=== PATIENT | male | born 1980 | race Caucasian/White ===

== ENCOUNTER 2021-10-09 06:00 | Day surgery (SDC) | payer OTHER, SELFPAY ==
[2021-10-07 14:03] VITALS: BMI 31.9
[2021-10-09 06:19] VITALS: BP 138/103; PULSE 76; RESP 16; TEMP 36.3; O2SAT 99
[2021-10-09] MEDS: sodium chloride 0.9% 1,000 ML 30 ML IV (06:24)
--- NOTE | 2021-10-09 06:34 | W.PM.OPSFHP ---
Same Day Surgery H&P Indication for Procedure/HPI DATE OF PROCEDURE: October 09, 2021 CHIEF COMPLAINT/INDICATIONFOR SURGICAL PROCEDURE: Surveillance colonoscopy PREOP DIAGNOSIS: Blood in stool PLANNED PROCEDURE: Operation Date: 10/09/21 07:30 Proposed Procedures p Colonoscopy 09820(Not Applicable) - Jamir Hernández MD 05/26/2021 This is a pleasant 40 years old gentleman with history of bloody diarrhea.? History of colon polyps.? Patient was previously diagnosed with Crohn's disease according to his description back in 2013 and then in 2017 in [place] that was ruled out.? And was treated with live bacteria according to his reporting.? Patient reports that he had multiple colonoscopies and currently he does have blood in stool but no diarrhea.? He is referred to my practice for surveillance colonoscopy. 10/09/2021 Patient comes today for colonoscopy with history of blood in stool. ROS All systems have been reviewed negative except as for the above or per problem list. Medications/Allergies* Home Medications Medication Instructions Recorded Confirmed Type divalproex 250 mg tablet,extended 250 mg PO DAILY 07/15/21 10/09/21 History release 24 hr (Depakote ER) Allergies/Adverse Reactions Allergy/AdvReac Type Severity Reaction Status Date / Time No Known Allergies Allergy Verified 10/09/21 06:35 Current Medications: Generic Name Dose Route Start Last Admin Trade Name Freq PRN Reason Stop Dose Admin Sodium Chloride 1,000 mls @ 30 mls/hr 10/09/21 06:15 10/09/21 06:24 Sodium Chloride 0.9% IV 10/10/21 06:14 30 mls/hr .Q24H OTILIA Administration Pertinent History/Comorbid Conditions* Family History (Updated 05/26/21 @ 10:15 by Minnie Danielle) CAD (coronary artery disease) Cancer Stroke Denies family history of Diabetes Dementia Chronic kidney disease (CKD) Social History Smoking and tobacco status: current every day smoker smokeless tobacco Alcohol intake: never Lives independently: Yes Household members: spouse and children Pertinent Exam Findings alert, oriented x 3, regular rate & rhythm and procedure specific exam findings (Abdominal examination nontender nondistended soft) Recommendations Surgery/Procedure today (Diagnostic colonoscopy) Coding Level of Care Code Acute System Technologist for Ania Flannery
--- NOTE | 2021-10-09 06:52 | ANES.PREANE2 ---
Pre-Anesthetic Assessment Height/Weight: Height 1.73 m Weight 95.254 kg Temp Pulse Resp BP Pulse Ox 97.3 F L 76 16 138/103 99 10/09/21 06:19 10/09/21 06:19 10/09/21 06:19 10/09/21 06:19 10/09/21 06:19 Preop Diagnosis: Blood in stool Operation Date: 10/09/21 07:30 Proposed Procedures p Colonoscopy 33018(Not Applicable) - Jamir Hernández MD Was Beta Rojas taken within 24 hours: Yes Was Clonidine taken within 24 hours: Yes Last intake: Intake Last Liquid Date 10/08/21 Last Liquid Time 21:00 Last Solid Date 10/07/21 Last Solid Time 19:00 Last Intake: 21:00 Social Tobacco chews Exam alert and oriented x 3 Airway Submandibular: within normal limits Cervical ROM: within normal limits Mallampati: Class II Dentition: full History/ROS No significant history except as noted Pulmonary Sleep Apnea (Cpap) CV/HEM None reported None reported Hepatic None reported GI None reported Metabolic None reported Musc/skel None reported Neuropsych None reported Anesthetic Plan ASA status: 2 Anesthesia: MAC Risk of > 500 ml blood loss (7ml/kg in children): No Medications/Allergies Home Medications Medication Instructions Recorded Confirmed Last Taken Type divalproex 250 mg tablet,extended 250 mg PO DAILY 07/15/21 10/09/21 10/08/21 History release 24 hr (Depakote ER) Allergies Allergy/AdvReac Type Severity Reaction Status Date / Time No Known Allergies Allergy Verified 10/09/21 06:35 Current Medications Generic Name Dose Route Start Last Admin Trade Name Juanjoq PRN Reason Stop Dose Admin Sodium Chloride 1,000 mls @ 30 mls/hr 10/09/21 06:15 10/09/21 06:24 Sodium Chloride 0.9% IV 10/10/21 06:14 30 mls/hr .Q24H OTILIA Administration PFSH Anesthesia Family History Other CAD (coronary artery disease) Cancer Stroke Denies family history of Diabetes Dementia Chronic kidney disease (CKD) Social History Smoking and tobacco status: current every day smoker smokeless tobacco Alcohol intake: never Lives independently: Yes Household members: spouse and children Data Anesthesia Cardiac Studies: No Data to Display
[2021-10-09 07:52] VITALS: BP 98/63; PULSE 80; RESP 18; TEMP 36.2; O2SAT 95
[2021-10-09 08:03] VITALS: BP 120/60; PULSE 69; RESP 18; O2SAT 95
[2021-10-09 08:15] VITALS: BP 104/75
--- NOTE | 2021-10-09 16:29 | ANE.PACU2 ---
Inpatient post-anesthesia follow up: Airway intact: Yes Vital signs: Temperature 97.2 F Pulse Rate 69 Respiratory Rate 18 Blood Pressure 104/75 Pulse Oximetry 95 Oxygen Delivery Me thod Room Air Oxygen Flow Rate Fraction of Inspir ed Oxygen Hydration adequate: Yes Nausea and vomiting: No Pain level: 1 Mental status: Baseline
== END 2021-10-09 08:35 | disposition home or self-care (01) ==
PROVIDERS: PCP Family Medicine; Visit Provider Surgery
PROC: 0DJD8ZZ Inspection of Lower Intestinal Tract, Via Natural or Artificial Opening Endoscopic (ICD-10-PCS; CPT 45378; principal; 2021-10-09 07:30)
DX: K92.1 Melena (principal); Z86.010 Personal history of colon polyps; Z82.49 Family history of ischemic heart disease and other diseases of the circulatory system; F17.220 Nicotine dependence, chewing tobacco, uncomplicated; G47.30 Sleep apnea, unspecified
CPT/HCPCS: 45378; J2704; J7030

== ENCOUNTER → 2021-12-08 11:45 | Outpatient (BNVA) | payer OTHER, SELFPAY | PROVIDERS: PCP Family Medicine; Visit Provider Specialist | DX: G43.019 Migraine without aura, intractable, without status migrainosus (principal); S06.9X0S Unspecified intracranial injury without loss of consciousness, sequela | CPT/HCPCS: 99204 ==

== ENCOUNTER 2022-02-03 08:59 | Outpatient (CLI) | payer OTHER, SELFPAY ==
--- NOTE | 2022-02-03 09:23 | MR_ITS ---
WS: [id number] MRI CERVICAL SPINE NONCONTRAST TECHNIQUE: Sagittal T1, T2 and STIR imaging. Axial T2, gradient, and fiesta imaging. CLINICAL INFORMATION: CEREVICAL RADICULOPATHY LEFT SIDE COMPARISON: None. FINDINGS: Straightening of the normal cervical lordosis. Cord signal is normal. No high-grade central canal gay rowing. C2-C3: Normal. C3-C4: Mild disc osteophytic ridging. Mild LEFT and no significant RIGHT foraminal narrowing. Mild fa cet arthropathy. Spinal canal is patent. C4-C5: Mild disc osteophytic ridging. Mild LEFT and no significant RIGHT foraminal narrowing. Mild fa cet arthropathy. Spinal canal is patent. C5-C6: Minimal disc bulging. Slight osteophytic ridging. Mild LEFT and no significant RIGHT foraminal narrowing. Mild facet arthropathy. Spinal canal is patent. C6-C7: Normal. C7-T1: Normal. Visualized brain stem structures: Normal. Prevertebral soft tissues: Normal. MR/MR cervical spin wo con* [id number] IMPRESSION: 1. Straightening of the normal cervical lordosis. Cord signal is normal. 2. Mild LEFT C3-C4, LEFT C4-C5, and LEFT C5-C6 bony foraminal narrowing. 3. Mild facet arthropathy C3-C4, C4-C5 and C5-C6.
== END 2022-02-03 09:00 | disposition home or self-care (01) ==
PROVIDERS: PCP Family Medicine; Visit Provider Family Medicine
DX: Z01.89 Encounter for other specified special examinations (principal); M54.12 Radiculopathy, cervical region; M47.812 Spondylosis without myelopathy or radiculopathy, cervical region
CPT/HCPCS: 72141

== ENCOUNTER 2022-03-02 14:06 | Outpatient (CLI) | payer OTHER, SELFPAY ==
--- NOTE | 2022-03-02 14:30 | MR_ITS ---
WS: [id number] MRI HEAD WITHOUT CONTRAST TECHNIQUE: Sagittal T1, T2 axial, T2 axial FLAIR, axial and coronal T1 images, axial susceptibility w eighted imaging, axial diffusion weighted images, and coronal T2 images were obtained. CLINICAL INFORMATION: R51.9 - Headache, unspecified COMPARISON: None. FINDINGS: No evidence of restricted diffusion to suggest acute ischemia. Ventricular system and basal cisterns are patent. A few tiny foci of T2 hyperintensity in the subcortical white matter of doubtful clinical significance but can be seen with migraine headaches. No suspicious intracranial signal abnormalitie s. Normal posterior fossa. Normal vascular flow voids at the skull base. Normal posterior nasopharynx . Normal parapharyngeal fat. No extra-axial fluid collections. No evidence of mass or mass effect. Paranasal sinuses and mastoid a ir cells are well aerated. Normal posterior nasopharynx. Normal optic chiasm and pituitary infundibulum. Temporal lobes and hippocampal formations are normal in appearance. No hemosiderin on susceptibly weighted images. No other suspicious findings. MR/MR head wo con* [id number] IMPRESSION: 1. No evidence of restricted diffusion to suggest acute ischemia. 2. A few tiny foci of T2 hyperintensity in the subcortical white matter of lelia btful clinical significance but can be seen with migraine headaches. 3. No other suspicious intracranial signal abnormalities. 4. Temporal lobes and hippocampal formations are normal in appearance. 5. Normal optic chiasm and pituitary infundibulum. 6. No hemosiderin on the susceptibly weighted images.
== END 2022-03-02 14:07 | disposition home or self-care (01) ==
PROVIDERS: PCP Family Medicine; Visit Provider Specialist
DX: R51.9 Headache, unspecified (principal); R29.90 Unspecified symptoms and signs involving the nervous system
CPT/HCPCS: 70551

== ENCOUNTER → 2022-05-06 08:06 | Outpatient (BNVA) | payer OTHER, SELFPAY | PROVIDERS: PCP Family Medicine; Referring Provider Specialist; Visit Provider Specialist | DX: G43.711 Chronic migraine without aura, intractable, with status migrainosus (principal); M47.812 Spondylosis without myelopathy or radiculopathy, cervical region; S06.9X9S Unspecified intracranial injury with loss of consciousness of unspecified duration, sequela; Y93.9 Activity, unspecified | CPT/HCPCS: 99214 ==

== ENCOUNTER → 2022-08-18 10:03 | Outpatient (BNVA) | payer OTHER, SELFPAY | PROVIDERS: PCP Family Medicine; Visit Provider Specialist | DX: G43.711 Chronic migraine without aura, intractable, with status migrainosus (principal); R41.89 Other symptoms and signs involving cognitive functions and awareness; F98.8 Other specified behavioral and emotional disorders with onset usually occurring in childhood and adolescence; Z87.820 Personal history of traumatic brain injury | CPT/HCPCS: 99214 ==

== ENCOUNTER → 2022-10-20 15:27 | Outpatient (BNVA) | payer OTHER, SELFPAY | PROVIDERS: PCP Family Medicine; Visit Provider Podiatrist Foot & Ankle Surgery | DX: M72.2 Plantar fascial fibromatosis (principal); M79.672 Pain in left foot | CPT/HCPCS: 73630; 99203 ==

== ENCOUNTER → 2022-11-04 09:46 | Outpatient (BNVA) | payer OTHER, SELFPAY | PROVIDERS: PCP Family Medicine; Visit Provider Specialist | DX: F98.8 Other specified behavioral and emotional disorders with onset usually occurring in childhood and adolescence (principal); G43.711 Chronic migraine without aura, intractable, with status migrainosus | CPT/HCPCS: 99213 ==

== ENCOUNTER → 2022-12-29 12:51 | Outpatient (BNVA) | payer OTHER, SELFPAY | PROVIDERS: PCP Family Medicine; Visit Provider Podiatrist Foot & Ankle Surgery | DX: M72.2 Plantar fascial fibromatosis (principal) | CPT/HCPCS: 99213 ==

== ENCOUNTER → 2023-07-13 09:02 | Outpatient (BNVA) | payer OTHER, SELFPAY | PROVIDERS: PCP Family Medicine; Visit Provider Specialist | DX: G43.711 Chronic migraine without aura, intractable, with status migrainosus (principal); S06.9X9D Unspecified intracranial injury with loss of consciousness of unspecified duration, subsequent encounter; F98.8 Other specified behavioral and emotional disorders with onset usually occurring in childhood and adolescence; G47.33 Obstructive sleep apnea (adult) (pediatric) | CPT/HCPCS: 99214 ==

== ENCOUNTER → 2023-09-14 15:28 | Outpatient (BNVA) | payer OTHER, SELFPAY | PROVIDERS: PCP Family Medicine; Visit Provider Specialist | DX: G43.711 Chronic migraine without aura, intractable, with status migrainosus (principal); S06.9X9D Unspecified intracranial injury with loss of consciousness of unspecified duration, subsequent encounter; F98.8 Other specified behavioral and emotional disorders with onset usually occurring in childhood and adolescence; G47.33 Obstructive sleep apnea (adult) (pediatric); G47.10 Hypersomnia, unspecified; X58.XXXD Exposure to other specified factors, subsequent encounter; Z99.89 Dependence on other enabling machines and devices | CPT/HCPCS: 99214 ==

== ENCOUNTER 2025-04-10 13:41 | Outpatient (CLI) | payer OTHER, SELFPAY ==
[2025-04-10 14:23] LABS: Hematocrit 42.8 % (37-53); Hemoglobin 15.00 g/dL (11.27-16.99); Mean Corpuscular HGB Conc 35.0 g/dL (30-55); Mean Corpuscular Hemoglobin 31.0 pg (27-33); Mean Corpuscular Volume 88.4 fl (82-101); Nucleated Red Blood Cells % 0 %; Platelet Count 258 10^3/cmm (157-399); Red Blood Count 4.84 10^6/uL (3.85-5.65); White Blood Count 4.33 10^3/uL (3.29-11.43)
== END 2025-04-10 13:42 | disposition home or self-care (01) ==
PROVIDERS: PCP Family Medicine; Visit Provider Nurse Practitioner Family
DX: E29.1 Testicular hypofunction (principal)
CPT/HCPCS: 36415; 82670; 84403; 85025